=== PATIENT | male | born 1950 | race Caucasian/White ===

== ENCOUNTER 2022-09-20 15:24 | Emergency (ER) | payer MEDICARE, BC, SELFPAY ==
--- NOTE | 2022-09-20 15:37 | ED_ITS ---
HPI - CPR General Chief Complaint: Cardiac Arrest/CPR Stated Complaint: cardiac arrest Time Seen by Provider: 09/20/22 15:33 Source: EMS Mode of arrival: EMS History of Present Illness HPI narrative: Patient comes to the emergency room from [place] in cardiac arrest. Fire department was called for cardiac arrest. The fire team explains that the patient's noted that the patient was coming down from climbing down stairs, patient was able to get to the floor, said that he was not feeling well, lowered himself to the ground, had seizure-like activity for a few seconds, then patient's checked for pulse, there was no pulse and started CPR. [place] reports that from the time that they arrived to the patient's residence to the time they got to the hospital, 6 shocks and 7 epinephrine were given. On arrival to the emergency room, patient was in asystole, 55 minutes of CPR had been in progress. Patient was intubated in the field Review of Systems Review of Systems: Yes unobtainable due to endotracheal tube and Unobtainable due to mental condition [facility] Past Medical History Medical History (Updated 09/20/22 @ 20:00 by Jojo Aranda MD) COPD (chronic obstructive pulmonary disease) GI bleed Hypertension Prostate cancer Type 2 diabetes mellitus Social History Social History Advance Directives: No Advance Directives Information Provided: No Physical Exam Const: Other: Appearance: Unresponsive Eyes: Pupils equal, nonresponsive to light, no corneal reflexes present ENT: Intubated Neck: In C-spine precautions CVS: CPR in progress Respiratory: Intubated Abdomen: Distended Skin: Mottled and cold. Extremities: No lower extremity edema. No Lacerations. No Rash Neuro: Unresponsive Psych: c unresponsive Course Course Course Narrative: -when patient arrived to the emergency room, recheck pulse, patient was in asystole, bedside ultrasound showed no cardiac activity. CPR continued for a couple of cycles. By the time that I decided to call time of at , patient had already had 55 minutes of CPR. -patient's family was notified -PD from [place] spoke to the medical technicians to give further history. I also spoke to them to confirm the information. Examine declined the case. () -patient's nurse informed me that the patient was accepted by the [facility] -patient's family at bedside -the actual cause of is unknown Medical Decision Making Lab Data Labs: Lab Results 09/20/22 Range/Units 15:28 POC Glucose 451 H* (60-115) mg/dL Discharge Plan Discharge Clinical Impression: Cardiac arrest Patient Disposition: Interventions: [facility]or Nursing Doc/Post Mortem care Last Done: 09/20/22 19:06 Discharge Date/Time: 09/20/22 19:08 Date/Time: 09/20/22 15:30
[2022-09-20 15:41] LABS: Glucose, Whole Blood 451 mg/dL (60-115)
--- NOTE | 2022-09-20 16:07 | PC.NURSE ---
This RN notified [facility], spoke with Tish. Reference number [id number] [facility] will accept pt at this time.
--- NOTE | 2022-09-20 16:34 | PC.NURSE ---
Marce and friend of and brother of pt at bedside home [facility] in [place] [phone]
--- NOTE | 2022-09-20 17:28 | PC.NURSE ---
Jewelry (2 rings and 1 necklace) given to Pt decline by medical payment poster, case # [id number]
== END 2022-09-20 19:08 | disposition expired ==
PROVIDERS: Emergency Provider Emergency Medicine
DX: I46.9 Cardiac arrest, cause unspecified (principal)
CPT/HCPCS: 82947; 96374; 99282; 99285; J0171